=== PATIENT | female | born 1955 | race Caucasian/White ===

== ENCOUNTER 2016-10-18 07:57 | Emergency (ER) | payer BC ==
[~2016-10-18 07:57] MED LIST: CLARITIN10 MG PO
== END 2016-10-18 09:25 | disposition home or self-care (01) ==
LOC: CED 07:57
DX: F41.9 Anxiety disorder, unspecified (principal); I10 Essential (primary) hypertension; H66.92 Otitis media, unspecified, left ear; Z90.49 Acquired absence of other specified parts of digestive tract; F17.200 Nicotine dependence, unspecified, uncomplicated; Z79.899 Other long term (current) drug therapy
CPT/HCPCS: 99283

== ENCOUNTER 2016-10-23 08:31 | Emergency (ER) | payer BC | END 2016-10-23 08:42 | disposition home or self-care (01) | LOC: CED 08:31 | DX: I10 Essential (primary) hypertension (principal); F17.210 Nicotine dependence, cigarettes, uncomplicated; Z90.49 Acquired absence of other specified parts of digestive tract; Z98.51 Tubal ligation status | CPT/HCPCS: 99282 ==